=== PATIENT | male | born 2000 | race Caucasian/White ===

== ENCOUNTER 2023-10-16 15:12 | Outpatient (RCR) | payer OTHER ==
[2023-10-13 18:40] VITALS: BP 110/80
[~2023-10-16] VITALS: Wt 100.0 kg
[~2023-10-16 15:12] MED LIST: METHYLPHENIDATE36 M1 PO; Rabies Immune Globulin PF 300 UNITS/2 ML VIAL IM ONE; SINGULAIR 110 MG/TAB
[2023-10-16 15:31] VITALS: BP 128/80
[2023-10-16] MEDS ORDERED: AMOXICILLIN AND1 TA2 PO (15:34)
== END 2023-10-22 | disposition home or self-care (01) ==
LOC: AMSURD
DX: T14.8XXA Other injury of unspecified body region, initial encounter (principal); W55.01XA Bitten by cat, initial encounter